=== PATIENT | female | born 1955 | race African-American/Black ===

== ENCOUNTER → 2019-04-29 | Outpatient (CLI) | payer OTHER ==
--- NOTE | 2019-04-30 13:38 | RAD ---
CHEST PA LATERAL History: TB test Comparison: None. Findings: 2 views of the chest are submitted. There is no infiltrate, pneumothorax, or effusion. Pericardial cardiac silhouette is within normal limits in size. Impression: 1. There is no radiographic evidence of acute cardiopulmonary disease. There are no radiographic findings suggestive of active tuberculosis. Electronically signed by: Guido Torre MD (04/30/2019 1:35 PM) [facility] [place]
== END | disposition home or self-care (01) ==
LOC: RAD 14:37
PROVIDERS: ATTEND Family Medicine
DX: Z11.1 Encounter for screening for respiratory tuberculosis (principal)
CPT/HCPCS: 71046